=== PATIENT | male | born 1960 | race Caucasian/White ===

== ENCOUNTER 2021-09-11 08:52 | Emergency (ER) | payer BC ==
--- OUTSIDE RECORDS SUMMARY | 2021-09-11 08:55 | XMS REPORT | Continuity of Care Document ---
:1960 Author Organization [facility] t Address [address] [place] [address] Care Team Providers Name Role Phone Peng Cardoso Attending Clinician Unavailable Problems This patient has no known problems. Allergies, Adverse Reactions, Alerts This patient has no known allergies or adverse reactions. Medications This patient has no known medications. Procedures This patient has no known procedures. Encounters Start End Encounter Admission Attending Care Care Encounter Source Date/Time Date/Time Type Type Clinicians Facility Department ID 2021-09-02 Outpatient Cardoso, STLMLC STLC [id number] Common 13:12:02 Raoul [id number] [facility] 2021-08-08 Outpatient Cardoso, STLMLC STLC [id number] Common 10:09:04 Raoul [facility] 2021-05-15 Outpatient Cardoso, STLMLC STLMLC [id number] Common 13:14:29 Raoul [id number] [facility] 2021-09-03 2021-09-03 ambulatory STLMLC STLMLC [id number] Common 00:00:00 00:00:00 [facility] 2020-10-17 2020-10-17 Outpatient STLMLC STLMLC [id number] Common 00:00:00 00:00:00 [facility] 2020-10-01 2020-10-01 Outpatient STLMLC STLMLC [id number] Common 00:00:00 00:00:00 [facility] Results This patient has no known results.
[2021-09-11] MEDS ORDERED: NA CHLORIDE 0.9% 1,000 ML ONE (09:42)
[2021-09-11 09:48] LABS: Hematocrit 45.3 % (39.6-49.0); Lymphocytes % 18.8 % (15.3-44.8); MPV 6.6 fL (7.6-11.3); RBC Red Blood Cell Count 5.08 M/uL (4.33-5.43)
[2021-09-11 10:06] LABS: Albumin 3.8 g/dL (3.4-5.0); Bilirubin Total 0.8 mg/dL (0.2-1.0); Protein, Total 7.6 g/dL (6.4-8.2)
--- NOTE | 2021-09-11 10:44 | EDPHYS ---
Physician Documentation [facility] Name: Dean Darden Age: 61 yrs Sex: Male : 1960 Arrival Date: 09/11/2021 Time: 08:55 Bed Waiting Private MD: Raoul Cardoso ED Physician Dilan Sutton HPI: 09/11 09:08 This 61 yrs old Male presents to ER via Unassigned with complaints of Abdominal jmm Cramping, Diarrhea. 09:08 The patient presents to the emergency department with nausea, vomiting, diarrhea. jmm Onset: The symptoms/episode began/occurred gradually, 2 day(s) ago. Possible causes: unknown. The symptoms are aggravated by nothing. The symptoms are alleviated by nothing. Associated signs and symptoms: Pertinent positives: diarrhea, fever, nausea, vomiting. The patient has not experienced similar symptoms in the past. This is a 61 year old male with no chronic medical conditions that presents to the ED with complaints of nausea, low grade fever, diarrhea beginning this past Thursday. Denies abdominal pain but states he has a bowel movement every 15 to 30 minutes. Denies recent travel, abx use, infectious exposure. . ROS: 09:08 Cardiovascular: Negative for chest pain, palpitations, and edema, Respiratory: Negative jmm for shortness of breath, cough, wheezing, and pleuritic chest pain. 09:08 Constitutional: Positive for body aches, chills, fatigue, fever, malaise. 09:08 Abdomen/GI: Positive for nausea, vomiting, diarrhea. 09:08 All other systems are negative. Exam: 09:08 Constitutional: This is a well developed, well nourished patient who is awake, alert, jmm and in no acute distress. Head/Face: atraumatic. Eyes: EOMI, no conjunctival erythema appreciated ENT: Moist Mucus Membranes Neck: Trachea midline, Supple Chest/axilla: Normal chest wall appearance and motion. Cardiovascular: Regular rate and rhythm. No edema appreciated Respiratory: Normal respirations, no respiratory distress appreciated Abdomen/GI: Non distended, soft Back: Normal ROM Skin: General appearance color normal MS/ Extremity: Moves all extremities, no obvious deformities appreciated, no edema noted to the lower extremities Neuro: Awake and alert Psych: Behavior is normal, Mood is normal, Patient is cooperative and pleasant 09:08 Abdomen/GI: Inspection: abdomen appears normal, Bowel sounds: normal, Palpation: abdomen is soft and non-tender, in all quadrants. Vital Signs: 09:40 BP 132 / 82; Pulse 96; Resp 16; Temp 98.5; Pulse Ox 98% on R/A; iw MDM: 09:08 Patient medically screened. [facility] 10:43 Data reviewed: vital signs, nurses notes. Counseling: I had a detailed discussion with [facility] the patient and/or guardian regarding: the historical points, exam findings, and any diagnostic results supporting the discharge/admit diagnosis, lab results, the need for outpatient follow up, to return to the emergency department if symptoms worsen or persist or if there are any questions or concerns that arise at home. 09/11 09:08 Order name: CBC with Diff; Complete Time: 09:50 [facility] 09/11 09:08 Order name: CMP; Complete Time: 10:08 [facility] 09/11 09:08 Order name: Lipase; Complete Time: 10:08 [facility] 09/11 09:08 Order name: IV Saline Lock; Complete Time: 09:42 [facility] 09/11 09:08 Order name: Labs collected and sent; Complete Time: 09:42 [facility] Administered Medications: 09:42 Drug: NS 0.9% 1000 ml Route: IV; Rate: 1 bolus; Site: left antecubital; iw 10:45 Follow up: IV Status: Completed infusion iw 09:42 Not Given (Patient Refused): Zofran (Ondansetron) 4 mg IVP once; over 2 minutes iw Disposition: 12:43 Co-signature as Attending Physician, Dilan Sutton MD. Chart complete. Chart complete. rn Disposition Summary: 09/11/21 10:43 Discharge Ordered Location: Home [facility] Condition: Stable [facility] Diagnosis - Diarrhea, unspecified [facility] - Dehydration [facility] Followup: [facility] - With: Raoul Cardoso, DO - When: 1 - 2 days - Reason: Recheck today's complaints, Continuance of care, Re-evaluation by your physician Discharge Instructions: - Discharge Summary Sheet [facility] - Food Choices to Help Relieve Diarrhea, Adult jmm - Dehydration, Adult jmm - Probiotics [facility] Forms: - Medication Reconciliation Form [facility] - Thank You Letter [facility] - Antibiotic Education [facility] - Prescription Opioid Use [facility] Prescriptions: - ondansetron 4 mg Oral tablet,disintegrating - take 1 tablet by ORAL route every 4-6 hours As needed; 30 tablet; Refills: 0, [facility] Product Selection Permitted - dicyclomine 20 mg Oral Tablet - take 1 tablet by ORAL route 4 times per day; 30 tablet; Refills: 0, Product [facility] Selection Permitted Signatures: Dispatcher [employer] Dante Lindo PA PA jmm Williams, Irene, RN RN iw Dilan Sutton MD MD rn
--- NOTE | 2021-09-11 10:44 | ER ---
Nurse's Notes [facility] Name: Dean Darden Age: 61 yrs Sex: Male : 1960 Arrival Date: 09/11/2021 Time: 08:55 Bed Waiting Private MD: Raoul Cardoso Diagnosis: Diarrhea, unspecified;Dehydration Presentation: 09/11 09:35 Acuity: BUD 3 iw 09:40 Chief complaint: Patient states: diarrhea abd cramping all last night. Coronavirus iw screen: Client presents with at least one sign or symptom that may indicate coronavirus-19. Ebola Screen: Patient negative for fever greater than or equal to 101.5 degrees Fahrenheit, and additional compatible Ebola Virus Disease symptoms Patient denies exposure to infectious person. Patient denies travel to an Ebola-affected area in the 21 days before illness onset. No symptoms or risks identified at this time. Initial Sepsis Screen: Does the patient meet any 2 criteria? No. Patient's initial sepsis screen is negative. Does the patient have a suspected source of infection? No. Patient's initial sepsis screen is negative. Risk Assessment: Do you want to hurt yourself or someone else? Patient reports no desire to harm self or others. Onset of symptoms was September 10, 2021. 09:40 Method Of Arrival: Ambulatory iw Screenin:42 Abuse screen: Denies threats or abuse. Denies injuries from another. Nutritional iw screening: No deficits noted. Tuberculosis screening: No symptoms or risk factors identified. Fall Risk IV access (20 points). Assessment: 09:42 General: Appears in no apparent distress. Behavior is calm, cooperative. Pain:. Neuro: iw Level of Consciousness is awake, alert, obeys commands. GI: Reports diarrhea. Derm: Skin is intact, is healthy with good turgor. Vital Signs: 09:40 BP 132 / 82; Pulse 96; Resp 16; Temp 98.5; Pulse Ox 98% on R/A; iw ED Course: 08:55 Patient arrived in ED. mr 08:55 Raoul Cardoso DO is Private Physician. mr 09:04 Dante Castellanos PA is PHCP. [facility] 09:04 Dilan Sutton MD is Attending Physician. [facility] 09:35 Jill Mcgovern, JAMES is Primary Nurse. iw 09:35 Triage completed. iw 09:41 Arm band placed on. iw 09:42 Inserted saline lock: 20 gauge in left antecubital area, using aseptic technique. iw 10:43 Raoul Cardoso DO is Referral Physician. shayne Administered Medications: 09:42 Drug: NS 0.9% 1000 ml Route: IV; Rate: 1 bolus; Site: left antecubital; iw 10:45 Follow up: IV Status: Completed infusion iw 09:42 Not Given (Patient Refused): Zofran (Ondansetron) 4 mg IVP once; over 2 minutes iw Outcome: 10:43 Discharge ordered by . shayne 10:57 Patient left the ED. iw Signatures: Dante Castellanos PA PA jmm Rivera, Mary mr Jill Mcgovern, RN RN iw
[2021-09-11 11:02] VITALS: BP 132/82; TEMP 98.5; O2SAT 98
== END 2021-09-11 10:57 | disposition home or self-care (01) ==
LOC: ER 08:52
DX: R19.7 Diarrhea, unspecified (principal); E86.0 Dehydration; R11.2 Nausea with vomiting, unspecified
CPT/HCPCS: 85025; 36415; 83690; 80053; 96360; 99283; J7030

== ENCOUNTER 2024-05-04 20:53 | Emergency (ER) | payer BC ==
--- NOTE | 2024-05-04 22:18 | RAD REPORT ---
EXAMINATION: CT HEAD WITHOUT CONTRAST CLINICAL INDICATION: Male, 64 years old.HEADACHE TECHNIQUE: Axial CT images from the skull base to the vertex without intravenous contrast. Coronal an d sagittal reformatted images were created from the data set. One or more of the following dose reduction techniques were used: Automated exposure control, adjustment of the mA and/or kV according to patient size, and/or iterative reconstruction. Unless otherwise specified, incidental findings do not require dedicated imaging follow-up. [id number]. COMPARISON: No prior exam. FINDINGS: INTRACRANIAL: No acute intracranial hemorrhage. No hydrocephalus. No mass effect or midline shift. No significant white matter disease VASCULATURE: No visualized abnormalities in the arteries or dural venous sinuses. SCALP/SKULL: No significant soft tissue or osseous abnormalities. SINUSES: The visualized paranasal sinuses and mastoid air cells are predominantly clear. IMPRESSION: No acute intracranial abnormality.
--- NOTE | 2024-05-04 22:21 | RAD REPORT ---
EXAM: Chest Single View HISTORY: COUGH COMPARISON: None. FINDINGS: LUNGS/PLEURA: The lungs are clear. No pleural effusions or pneumothorax. No pulmonary edema. MEDIASTINUM: The mediastinal silhouette is within normal limits. CARDIAC: The cardiac silhouette is within normal limits. UPPER ABDOMEN: No significant abnormality. BONES: No acute abnormality. LINES/TUBES/OTHER: N/A IMPRESSION: No evidence of acute cardiopulmonary disease.
[2024-05-04] MEDS ORDERED: cloNIDine HCL 0.1 MG TAB ONE (23:25)
[2024-05-04] MEDS ORDERED: lisinopriL 20 MG TAB ONE (23:25)
[2024-05-05 00:06] LABS: PT Prothrombin Time 11.2 SECONDS (9.4-12.5); Protime INR 1.07
[2024-05-05 00:08] LABS: Absolute Basophils 0.1 K/uL (0-0.5); Absolute Eosinophils 0.2 K/uL (0-0.5); Absolute Lymphocytes (CBC) 1.9 K/uL (0.7-4.9); Absolute Monocytes 0.4 K/uL (0.1-1.3); Absolute Neutrophil 3.2 K/uL (1.8-8.0); Basophils % 1.1 % (0-1.3); Eosinophils % 2.7 % (0-4.4); Hematocrit 42.9 % (39.6-49.0); Hemoglobin 15.1 g/dL (13.6-17.9); Lymphocytes % 33.2 % (15.3-44.8); MCH 31.6 pg (27.0-35.0); MCHC 35.1 g/dL (32.0-36.0); MCV 90.2 fL (80-100); MPV 7.7 fL (7.6-11.3); Monocytes % 7.5 % (3.3-12.3); Neutrophils % 55.5 % (41.7-73.7); Nucleated Red Blood Cells % 0.1 % (0-0); Platelets 252 thou/uL (152-406); RBC Red Blood Cell Count 4.76 M/uL (4.33-5.43); Red Cell Distribution Width 13.1 % (12.1-15.2)
[2024-05-05 00:20] LABS: ALT/SGPT 31 U/L (16-61); AST/SGOT 22 U/L (15-37); Albumin 3.8 g/dL (3.4-5.0); Albumin/Globulin Ratio 1.2 (1.1-1.8); Alkaline Phosphatase 53 U/L (45-117); Anion Gap 5.7 mEq/L (5.0-15.0); BUN Blood Urea Nitrogen 19 mg/dL (7-18); Bicarbonate 27 mEq/L (21-32); Bilirubin Total 0.4 mg/dL (0.2-1.0); Globulin 3.2 g/dL (2.3-3.5); Glomerular Filtration Rate 67 ml/min (=/>90); Glucose Level 120 mg/dL (74-106); Magnesium 2.2 mg/dL (1.6-2.4); NT PRO-BNP 125 pg/mL (<125); Potassium 3.7 mEq/L (3.5-5.1); Sodium Level 139 mEq/L (136-145); Troponin High Sensitivity 7.9 pg/mL (<58.9)
[2024-05-05 00:39] LABS: Bilirubin Direct < 0.2 mg/dL (0-0.2); Bilirubin Indirect, Calculated 0.2 mg/dL (0.2-0.8)
--- NOTE | 2024-05-05 00:51 | ER ---
Nurse's Notes [facility] Name: Dean Darden Age: 64 yrs Sex: Male : 1960 Arrival Date: 05/04/2024 Time: 20:53 Bed 15 Private MD: Diagnosis: Hypertensive heart disease without heart failure Presentation: 05/04 21:23 Chief complaint: Patient states: been keeping a log of bp, tonight it was high with c/o vc1 headache at base of skull, pressure behind eyes, lightheaded. Coronavirus screen: Client denies travel out of the [place] in the last 14 days. Ebola Screen: Patient negative for fever greater than or equal to 101.5 degrees Fahrenheit, and additional compatible Ebola Virus Disease symptoms Patient denies exposure to infectious person. Patient denies travel to an Ebola-affected area in the 21 days before illness onset. No symptoms or risks identified at this time. Initial Sepsis Screen: Does the patient meet any 2 criteria? No. Patient's initial sepsis screen is negative. Does the patient have a suspected source of infection? No. Patient's initial sepsis screen is negative. Risk Assessment: Do you want to hurt yourself or someone else? Patient reports no desire to harm self or others. Onset of symptoms was May 04, 2024. Care prior to arrival: None. Activity prior to arrival: None. Mechanism of Injury: No Mechanism of Injury. Transition of care: patient was not received from another setting of care. 21:23 Method Of Arrival: Ambulatory vc1 21:23 Acuity: BUD 3 vc1 Triage Assessment: 21:25 Headache History: Denies prior headaches. General: Behavior is anxious. General: vc1 Appears in no apparent distress. uncomfortable, slender, well groomed, well developed, well nourished, Behavior is cooperative. Pain: Complains of pain in occipital area Pain does not radiate. Pain currently is 3 out of 10 on a pain scale. Pain began 2-3 days ago. Also complains of dizziness. EENT: No deficits noted. No signs and/or symptoms were reported regarding the EENT system. Neuro: Level of Consciousness is awake, alert, obeys commands, Oriented to person, place, time, situation, Appropriate for age Reports headache occipital area. Cardiovascular: Denies chest pain, Capillary refill < 3 seconds Patient's skin is warm and dry. Respiratory: Airway is patent Respiratory effort is even, unlabored, Respiratory pattern is regular, symmetrical. GI: No deficits noted. No signs and/or symptoms were reported involving the gastrointestinal system. : No deficits noted. No signs and/or symptoms were reported regarding the genitourinary system. Derm: Skin is intact, is healthy with good turgor, Skin is dry, Skin is normal, Skin temperature is warm. Musculoskeletal: Circulation, motion, and sensation intact. Range of motion: intact in all extremities. Historical: - Allergies: 21:25 PENICILLINS; vc1 - Home Meds: 21:25 aspirin 81 mg Oral capsule [Active]; vc1 - PMHx: 21:25 None; vc1 - PSHx: 21:25 None; vc1 - Immunization history:: Client reports receiving the 2nd dose of the Covid vaccine, Flu vaccine is up to date. - Infectious Disease History:: Denies. - Social history:: Smoking status: Patient/guardian denies using tobacco, but has a distant history of tobacco abuse. Screenin:29 [facility] ED Fall Risk Assessment (Adult) History of falling in the last 3 months, vc1 including since admission No falls in past 3 months (0 pts) Confusion or Disorientation No (0 pts) Intoxicated or Sedated No (0 pts) Impaired Gait No (0 pts) Mobility Assist Device Used No (0 pt) Altered Elimination No (0 pt) Score/Fall Risk Level 0 - 2 = Low Risk Oriented to surroundings, Maintained a safe environment, Educated pt \T\ family on fall prevention, incl call for assistance when getting out of bed. Abuse screen: Denies threats or abuse. Nutritional screening: No deficits noted. Tuberculosis screening: No symptoms or risk factors identified. Assessment: 23:05 General: Appears in no apparent distress. comfortable, Behavior is calm, cooperative, jb4 appropriate for age. Pain: Complains of pain in epigastric area Pain does not radiate. Pain currently is 5 out of 10 on a pain scale. Neuro: Level of Consciousness is awake, alert, obeys commands, Oriented to person, place, time, situation. Cardiovascular: Patient's skin is warm and dry. Respiratory: Airway is patent Respiratory effort is even, unlabored, Respiratory pattern is regular, symmetrical. Derm: Skin is intact, Skin is pink, warm \T\ dry. 23:36 Reassessment: No changes from previously documented assessment. Patient and/or family vc1 updated on plan of care and expected duration. Pain level reassessed. Patient is alert, oriented x 3, equal unlabored respirations, skin warm/dry/pink. 05/05 01:00 Reassessment: Patient appears in no apparent distress at this time. Patient and/or jb4 family updated on plan of care and expected duration. Pain level reassessed. Patient is alert, oriented x 3, equal unlabored respirations, skin warm/dry/pink. Vital Signs: 05/04 21:23 BP 195 / 99; Pulse 78; Resp 15; Temp 99; Pulse Ox 98% ; vc1 23:28 BP 179 / 93; Pulse 65; Resp 22; Pulse Ox 98% ; Weight 79.83 kg; Height 6 ft. 1 in. ; vc1 23:45 BP 168 / 83; Pulse 60; Resp 16; Pulse Ox 98% on R/A; jb4 05/05 01:01 BP 156 / 78; Pulse 65; Resp 16; Pulse Ox 100% on R/A; jb4 05/04 23:28 Body Mass Index 23.22 (79.83 kg, 185.42 cm) vc1 ED Course: 05/04 20:56 Patient arrived in ED. jj6 20:59 Joss Marti PA is PHCP. cp 20:59 Bhavin Rasheed MD is Attending Physician. cp 21:24 Triage completed. vc1 21:28 Arm band placed on left wrist. vc1 22:05 CT Head Brain wo Cont In Process Unspecified. EDMS 22:16 Chest Single View In Process Unspecified. EDMS 23:06 Lucas Rice, JAMES is Primary Nurse. jb4 23:33 Patient has correct armband on for positive identification. Bed in low position. Call vc1 light in reach. Provided Education on: call light. school bus monitor on. Pulse ox on. NIBP on. 05/05 01:01 No provider procedures requiring assistance completed. IV discontinued, intact, jb4 bleeding controlled, No redness/swelling at site. Pressure dressing applied. Administered Medications: 05/04 21:29 CANCELLED (Physician Discretion): clonidine0.2 mg PO once cp 23:35 Drug: Lisinopril PO 20 mg PO once Route: PO; jb4 05/05 01:02 Follow up: Response: No adverse reaction; Marked relief of symptoms; Blood pressure is jb4 lowered 05/04 23:35 Drug: cloNIDine PO 0.1 mg PO once Route: PO; jb4 05/05 01:02 Follow up: Response: No adverse reaction; Marked relief of symptoms; Blood pressure is jb4 lowered Medication: 05/04 21:29 VIS not applicable for this client. vc1 Outcome: 05/05 00:51 Discharge ordered by . chaya 01:01 Discharged to home ambulatory, jb4 : Condition: stable 01:01 Discharge instructions given to patient, Instructed on discharge instructions, follow up and referral plans. medication usage, Demonstrated understanding of instructions, follow-up care, medications, Prescriptions given X 1, 01:02 Patient left the ED. jb4 Signatures: Dispatcher [employer] EDND Joss Marti PA PA cp Bryson, James, RN RN jb4 Dorota Pichardo jj6 Adriana Celestin RN RN vc1 Corrections: (The following items were deleted from the chart) 05/04 21:28 21:25 Allergies: No Known Allergies; vc1 vc1 22:37 22:06 In radiology for Chest Single View+[email or web address]. EDND EDND 05/05 01:02 05/04 23:05 BP 156 / 78; Pulse 65bpm; Resp 16bpm; Pulse Ox 100% RA; jb4 jb4
--- NOTE | 2024-05-05 00:51 | EDPHYS ---
Physician Documentation [facility] Name: Dean Darden Age: 64 yrs Sex: Male : 1960 Arrival Date: 05/04/2024 Time: 20:53 Bed 15 Private MD: ED Physician Bhavin Rasheed HPI: 05/04 21:33 This 64 yrs old Male presents to ER via Ambulatory with complaints of High Blood cp Pressure, Headache, Epigastric Pain, HEAD PRESSURE, Dizziness. 21:33 The patient has elevated blood pressure and discovered this at home, with a home device.cp 21:33 Onset: The symptoms/episode began/occurred gradually, and became worse today. cp 21:33 Associated signs and symptoms: Pertinent positives: headache, lightheadedness, cp Pertinent negatives: chest pain, visual changes, vomiting, weakness. Severity of symptoms: in the emergency department the blood pressure is unchanged. Historical: - Allergies: 21:25 PENICILLINS; vc1 - Home Meds: 21:25 aspirin 81 mg Oral capsule [Active]; vc1 - PMHx: 21:25 None; vc1 - PSHx: 21:25 None; vc1 - Immunization history:: Client reports receiving the 2nd dose of the Covid vaccine, Flu vaccine is up to date. - Infectious Disease History:: Denies. - Social history:: Smoking status: Patient/guardian denies using tobacco, but has a distant history of tobacco abuse. ROS: 21:35 Constitutional: Negative for body aches, chills, fever, cp 21:35 Eyes: Negative for injury, pain, redness, and discharge, cp 21:35 ENT: Negative for drainage from ear(s), ear pain, sore throat, difficulty swallowing, cp difficulty handling secretions, 21:35 Cardiovascular: Negative for chest pain, edema, palpitations, 21:35 Respiratory: Negative for cough, shortness of breath, wheezing, 21:35 Abdomen/GI: Negative for abdominal pain, vomiting, diarrhea, constipation, 21:35 Neuro: Positive for headache, Negative for altered mental status, weakness, 21:35 All other systems are negative, Exam: 21:40 Constitutional: The patient appears in no acute distress, alert, awake, cp non-diaphoretic, non-toxic, well developed, well nourished, 21:40 Head/Face: Normocephalic, atraumatic. cp 21:40 Eyes: Periorbital structures: appear normal, Pupils: equal, round, and reactive to light and accomodation, Extraocular movements: intact throughout, Conjunctiva: normal, no exudate, no injection, Sclera: no appreciated abnormality, Lids and lashes: appear normal, bilaterally, 21:40 ENT: External ear(s): are unremarkable, Nose: is normal, Mouth: Lips: moist, Oral mucosa: moist, Posterior pharynx: Airway: no evidence of obstruction, patent, 21:40 Neck: ROM/movement: is normal, is supple, without pain, no range of motions limitations, 21:40 Chest/axilla: Inspection: normal, 21:40 Cardiovascular: Rate: normal, Rhythm: regular, Edema: is not appreciated, JVD: is not appreciated, 21:40 Respiratory: the patient does not display signs of respiratory distress, Respirations: normal, no use of accessory muscles, no retractions, labored breathing, is not present, Breath sounds: are clear throughout, no decreased breath sounds, no stridor, no wheezing, 21:40 Abdomen/GI: Inspection: abdomen appears normal, Palpation: abdomen is soft and non-tender, in all quadrants, 21:40 Back: pain, is absent, ROM is normal, 21:40 Neuro: Orientation: to person, place \T\ time. Mentation: is normal, Cerebellar function: is grossly normal, Motor: moves all fours, strength is normal, Sensation: is normal, 23:27 ECG was reviewed by the Attending Physician. cp Vital Signs: 21:23 BP 195 / 99; Pulse 78; Resp 15; Temp 99; Pulse Ox 98% ; vc1 23:28 BP 179 / 93; Pulse 65; Resp 22; Pulse Ox 98% ; Weight 79.83 kg; Height 6 ft. 1 in. ; vc1 23:45 BP 168 / 83; Pulse 60; Resp 16; Pulse Ox 98% on R/A; jb4 05/05 01:01 BP 156 / 78; Pulse 65; Resp 16; Pulse Ox 100% on R/A; jb4 05/04 23:28 Body Mass Index 23.22 (79.83 kg, 185.42 cm) vc1 MDM: 05/04 21:23 Medical Screening Exam initiated cp 05/05 00:50 Data reviewed: vital signs, nurses notes, lab test result(s), EKG, radiologic studies, cp CT scan, plain films, and as a result, I will discharge patient. 00:50 Differential diagnosis: hypertensive crisis, Malignant HTN, CVA, intracerebral cp hemorrhage. I considered the following discharge prescriptions or medication management in the emergency department Medications were administered in the Emergency Department. See MAR. Independent interpretation of the following test(s) in the Emergency Department EKG: See my EKG interpretation above. Counseling: I had a detailed discussion with the patient and/or guardian regarding the historical points, exam findings, and any diagnostic results supporting the discharge/admit diagnosis, lab results, radiology results, the need for outpatient follow up, a family practitioner, to return to the emergency department if symptoms worsen or persist or if there are any questions or concerns that arise at home. Response to treatment: the patient's symptoms have markedly improved after treatment, and as a result, I will discharge patient. 05/04 21:29 Order name: Basic Metabolic Panel; Complete Time: 00:45 cp 05/05 00:45 Interpretation: Normal except: CL 110; GLUC 120; BUN 19; GFR 67. cp 05/04 21:29 Order name: CBC with Diff; Complete Time: 00:38 cp 05/04 21:29 Order name: LFT's; Complete Time: 00:45 cp 05/04 21:29 Order name: Magnesium; Complete Time: 00:45 cp 05/04 21:29 Order name: NT PRO-BNP; Complete Time: 00:45 cp 05/04 21:29 Order name: PT-INR; Complete Time: 00:09 cp 05/05 00:09 Interpretation: Reviewed. 05/04 21:29 Order name: Troponin HS; Complete Time: 00:45 cp 05/04 21:29 Order name: CT Head Brain wo Cont; Complete Time: 23:27 cp 05/05 00:10 Interpretation: Report reviewed. 05/04 22: Order name: Chest Single View; Complete Time: 23:27 EDMS 05/05 00:10 Interpretation: Report reviewed. 05/04 21:29 Order name: EKG; Complete Time: 21:30 cp 05/04 20: Order name: Cardiac monitoring; Complete Time: 23:23 cp 05/04 21:29 Order name: EKG - Nurse/Tech; Complete Time: 23:23 cp 05/04 21:29 Order name: IV Saline Lock; Complete Time: 23: cp 05/04 20:29 Order name: Labs collected and sent; Complete Time: : cp 05/04 20:29 Order name: O2 Per Protocol; Complete Time: 23:23 cp 05/04 20:29 Order name: O2 Sat Monitoring; Complete Time: 23:23 cp EC/15 23:27 Rate is 60 beats/min. Rhythm is regular. IL interval is normal. QRS interval is normal. cp QT interval is normal. T waves are Inverted in lead aVR. Interpreted by me. Reviewed by me. Administered Medications: : CANCELLED (Physician Discretion): clonidine0.2 mg PO once cp 23:35 Drug: Lisinopril PO 20 mg PO once Route: PO; jb4 05/05 01:02 Follow up: Response: No adverse reaction; Marked relief of symptoms; Blood pressure is jb4 lowered 05/04 23:35 Drug: cloNIDine PO 0.1 mg PO once Route: PO; jb4 05/05 01:02 Follow up: Response: No adverse reaction; Marked relief of symptoms; Blood pressure is jb4 lowered Disposition: 20:26 Co-signature as Attending Physician, Bhavin Rasheed MD I agree with the assessment sp4 and plan of care. I reviewed the patient's care provided by the Advanced Practice Provider and agree with the diagnosis and treatment plan. Disposition Summary: 05/05/24 00:51 Discharge Ordered Notes: Location: Home cp Problem: new cp Symptoms: have improved cp Condition: Stable cp Diagnosis - Hypertensive heart disease without heart failure cp Followup: cp - With: Private Physician - When: 2 - 3 days - Reason: Recheck today's complaints Discharge Instructions: - Discharge Summary Sheet cp - Hypertension, Adult cp - Aspirin and Your Heart cp - Form - Blood Pressure Record Sheet cp - How to Take Your Blood Pressure cp Forms: - Medication Reconciliation Form cp - Antibiotic Education cp - Prescription Opioid Use cp - Patient Portal Instructions cp - Leadership Thank You Letter cp Prescriptions: - Lisinopril 20 mg Oral Tablet - take 1 tablet ORAL route once daily; 20 tablet; Refills: 0, Product Selection cp Permitted Signatures: Dispatcher [employer] [facility] Joss Marti PA PA cp Bryson, James, RN RN jb4 Adriana Celestin, RN RN vc1 Bhavin Rasheed MD MD sp4 Corrections: (The following items were deleted from the chart) 05/04 21: 21:25 Allergies: No Known Allergies; vc1 vc1 21:29 cloNIDine PO 0.2 mg PO once ordered. cp cp : 21:30 Head Brain Wo Cont+CT.RAD.BRZ ordered. EDMS EDMS 22:37 21:30 Chest Single View+RAD.RAD.BRZ ordered. EDMS EDMS 05/06 00:29 05/04 21:35 Cardiovascular: Positive for chest pain, cp cp
--- NOTE | 2024-05-05 11:43 | EKG ---
Test Date: 2024-05-04 Test Time: 23:19:36 Director Executive Communications: ABEBE MEASUREMENT RESULTS: Intervals: Rate: 60 NH: 136 QRSD: 74 QT: 408 QTc: 408 [place]: P: 58 NH: 136 QRS: 23 T: 49 INTERPRETIVE STATEMENTS: Normal sinus rhythm Normal ECG No previous ECG available for comparison Electronically Signed On 05-05-24 11:42:37 SEVERITY OF ILLNESS COORDINATOR by Aron Romeo
[2024-05-06 02:36] VITALS: BP 156/78; TEMP 99; O2SAT 100
== END 2024-05-05 01:02 | disposition home or self-care (01) ==
LOC: ER 20:53
DX: I11.9 Hypertensive heart disease without heart failure (principal)
CPT/HCPCS: 36415; 70450; 71045; 80048; 80076; 83735; 83880; 84484; 85025; 85610; 93005; 99284

== ENCOUNTER 2024-07-13 15:35 | Emergency (ER) | payer BC ==
[2024-07-13 16:26] LABS: Absolute Eosinophils 0.1 K/uL (0-0.5); Absolute Lymphocytes (CBC) 1.6 K/uL (0.7-4.9); Absolute Monocytes 0.4 K/uL (0.1-1.3); Absolute Neutrophil 3.4 K/uL (1.8-8.0); Basophils % 0.9 % (0-1.3); Eosinophils % 1.3 % (0-4.4); Hematocrit 45.5 % (39.6-49.0); Hemoglobin 15.7 g/dL (13.6-17.9); Lymphocytes % 29.7 % (15.3-44.8); MCH 31.5 pg (27.0-35.0); MCHC 34.6 g/dL (32.0-36.0); MCV 91.1 fL (80-100); MPV 7.7 fL (7.6-11.3); Monocytes % 7.5 % (3.3-12.3); Neutrophils % 60.6 % (41.7-73.7); Nucleated Red Blood Cells % 0.1 % (0-0); Platelets 244 thou/uL (152-406); RBC Red Blood Cell Count 4.99 M/uL (4.33-5.43); Red Cell Distribution Width 13.8 % (12.1-15.2)
[2024-07-13 16:43] LABS: Albumin 3.9 g/dL (3.4-5.0); Albumin/Globulin Ratio 1.2 (1.1-1.8); Anion Gap 9.1 mEq/L (5.0-15.0); Bilirubin Total 0.6 mg/dL (0.2-1.0); Globulin 3.2 g/dL (2.3-3.5); Potassium 4.1 mEq/L (3.5-5.1); Protein, Total 7.1 g/dL (6.4-8.2)
[2024-07-13 17:10] LABS: Specific Gravity 1.024 (1.005-1.030); Urine Bilirubin NEGATIVE (Negative); Urine Blood Negative (Negative); Urine Clarity Clear (Clear); Urine Color Light-Yellow (Yellow); Urine Glucose NEGATIVE (Negative); Urine Ketones NEGATIVE (Negative); Urine Microscopic Reflex YN NO UMIC; Urine Nitrite NEGATIVE (Negative); Urine Protein NEGATIVE (Negative); Urine Urobilinogen Normal (Normal); Urine pH 5.5 (5.0-7.0)
--- NOTE | 2024-07-13 17:16 | RAD REPORT ---
EXAMINATION: CT ABDOMEN AND PELVIS WITHOUT CONTRAST CLINICAL INDICATION: Abdominal pain. Flank pain TECHNIQUE: CT abdomen and pelvis was performed, as per department protocol. IV contrast and oral was not administered.Axial, sagittal and coronal reconstructions were obtained. One or more of the following dose reduction techniques were used: Automated exposure control, adjustment of the mA and/o r kV according to the patient size, and/or iterative reconstruction. Unless otherwise specified, incidental findings do not require dedicated imaging follow-up. [id number]. COMPARISON: No prior exam. FINDINGS: The lack of intravenous and oral contrast limits evaluation of solid organs, vessels and bowel. The liver, spleen, pancreas, adrenals and kidneys appear grossly normal No evidence of diverticulitis Normal appendix. IMPRESSION: No acute abnormality displayed
--- NOTE | 2024-07-13 17:32 | ER ---
Nurse's Notes [facility] Name: Dean Darden Age: 64 yrs Sex: Male : 1960 Arrival Date: 07/13/2024 Time: 15:35 Bed 19 Private MD: Diagnosis: Low back pain Presentation: 07/13 15:55 Chief complaint: Patient states: was referred to a marketing liaison in May due to iw abnormal kidney function, has been having a dull ache and pressure in the middle of his back. Coronavirus screen: At this time, the client does not indicate any symptoms associated with coronavirus-19. Ebola Screen: No symptoms or risks identified at this time. Initial Sepsis Screen: Does the patient meet any 2 criteria? No. Patient's initial sepsis screen is negative. Does the patient have a suspected source of infection? No. Patient's initial sepsis screen is negative. Risk Assessment: Do you want to hurt yourself or someone else? Patient reports no desire to harm self or others. 15:55 Method Of Arrival: Ambulatory iw 15:55 Acuity: BUD 3 iw Historical: - Allergies: 15:56 PENICILLINS; iw - Home Meds: 15:57 lisinopril 20 mg Oral tablet daily [Active]; iw - PMHx: 15:57 Hypertensive disorder; iw - PSHx: 15:57 None; iw - Immunization history:: Adult Immunizations up to date. - Infectious Disease History:: Denies. - Social history:: Smoking status: Patient denies any tobacco usage or history of. Screenin:07 [facility] ED Fall Risk Assessment (Adult) History of falling in the last 3 months, ld1 including since admission No falls in past 3 months (0 pts) Confusion or Disorientation No (0 pts) Intoxicated or Sedated No (0 pts) Impaired Gait No (0 pts) Mobility Assist Device Used No (0 pt) Altered Elimination No (0 pt) Score/Fall Risk Level 0 - 2 = Low Risk Oriented to surroundings, Hourly rounding (assess needs \T\ fall precautionary measures) done. Abuse screen: Denies threats or abuse. Denies injuries from another. Nutritional screening: No deficits noted. Tuberculosis screening: No symptoms or risk factors identified. Assessment: 16:58 Reassessment: Patient and/or family updated on plan of care and expected duration. Pain ll1 level reassessed. 17:07 General: Appears in no apparent distress. comfortable, Behavior is calm, cooperative, ld1 appropriate for age. Pain: Complains of pain in low back area Pain does not radiate. Pain currently is 8 out of 10 on a pain scale. Quality of pain is described as throbbing, Pain began suddenly, Is continuous. Neuro: Level of Consciousness is awake, alert, obeys commands, Oriented to person, place, time, situation. Cardiovascular: Capillary refill < 3 seconds Patient's skin is warm and dry. Respiratory: Airway is patent Respiratory effort is even, unlabored. GI: Abdomen is flat, non-distended. : No signs and/or symptoms were reported regarding the genitourinary system. EENT: No signs and/or symptoms were reported regarding the EENT system. Derm: No signs and/or symptoms reported regarding the dermatologic system. Musculoskeletal: No signs and/or symptoms reported regarding the musculoskeletal system. Vital Signs: 15:55 BP 147 / 87; Pulse 78; Resp 16; Temp 98.2; Pulse Ox 98% on R/A; Weight 78.02 kg; Height iw 6 ft. 1 in. ; 17:07 BP 144 / 62; Pulse 65; Resp 18; Pulse Ox 99% on R/A; ld1 15:55 Body Mass Index 22.69 (78.02 kg, 185.42 cm) iw ED Course: 15:37 Patient arrived in ED. im 15:56 Triage completed. iw 15:57 Arm band placed on. iw 16:02 Jamal Wilkes MD is Attending Physician. ec2 16:16 Inserted saline lock: 20 gauge in left antecubital area, using aseptic technique. Blood iw collected. Flushed with 10 mL NS. 16:55 CT Abd/Pelvis - Without Contrast In Process Unspecified. EDMS 16:57 Patient placed in an exam room, on a stretcher. ll1 17:01 Mary Thornton, JAMES is Primary Nurse. ld1 17:07 Patient has correct armband on for positive identification. Placed in gown. Bed in low ld1 position. Call light in reach. Side rails up X2. Pulse ox on. NIBP on. Door closed. Noise minimized. Warm blanket given. 17:07 Urinalysis w/ reflexes Sent. ld1 17:07 No provider procedures requiring assistance completed. ld1 17:53 IV discontinued, intact, bleeding controlled, No redness/swelling at site. ld1 Administered Medications: No medications were administered Medication: 17:07 VIS not applicable for this client. ld1 Outcome: 17:32 Discharge ordered by . ec2 17:53 Discharged to home ambulatory, ld1 17:53 Condition: stable 17:53 Discharge instructions given to patient, Instructed on discharge instructions, follow up and referral plans. medication usage, Demonstrated understanding of instructions, follow-up care, medications, Prescriptions given X 1, 17:53 Patient left the ED. ld1 Signatures: Dispatcher [employer] Jill Sauer RN RN iw Brandan Medina RN RN ll1 Mary Thornton RN RN ld1 Magnolia Hutchins Edwin, MD MD ec2 Corrections: (The following items were deleted from the chart) 15:57 15:55 BP 147 / 87; Pulse 78bpm; Resp 16bpm; Pulse Ox 98% RA; iw iw 15:59 15:55 BP 147 / 87; Pulse 78bpm; Resp 16bpm; Pulse Ox 98% RA; 78.02 kg; Height 6 ft. 1 iw in.; BMI: 22.6; iw
--- NOTE | 2024-07-13 17:32 | EDPHYS ---
Physician Documentation [facility] Name: Dean Darden Age: 64 yrs Sex: Male : 1960 Arrival Date: 07/13/2024 Time: 15:35 Bed 19 Private MD: ED Physician Jamal Wilkes HPI: 07/13 17:16 This 64 yrs old Male presents to ER via Ambulatory with complaints of Low ec2 Back Pain. 17:16 Patient arrives today for evaluation of bilateral flank pain. Patient reports he has ec2 been having some bilateral flank pain and was told to come to the ED for evaluation that his primary care doctor is out of town. Patient reports no fevers or chills, no nausea or vomiting. Patient reports no specific urinary complaints, no hematuria. Reports he has some CKD as well.. Historical: - Allergies: 15:56 PENICILLINS; iw - Home Meds: 15:57 lisinopril 20 mg Oral tablet daily [Active]; iw - PMHx: 15:57 Hypertensive disorder; iw - PSHx: 15:57 None; iw - Immunization history:: Adult Immunizations up to date. - Infectious Disease History:: Denies. - Social history:: Smoking status: Patient denies any tobacco usage or history of. ROS: 17:17 Constitutional: as per hpi ec2 Exam: 17:17 Constitutional: GEN: NAD Head: atraumatic Eyes: EOMI Ears: External ears are ec2 normal. CV: regular rate LUNGS: no respiratory distress ABD: non-distended SKIN: no evidence of rashes MSK: no evidence of trauma Vital Signs: 15:55 BP 147 / 87; Pulse 78; Resp 16; Temp 98.2; Pulse Ox 98% on R/A; Weight 78.02 kg; Height iw 6 ft. 1 in. ; 17:07 BP 144 / 62; Pulse 65; Resp 18; Pulse Ox 99% on R/A; ld1 15:55 Body Mass Index 22.69 (78.02 kg, 185.42 cm) iw MDM: 16:03 Medical Screening Exam initiated ec2 17:17 Data reviewed: vital signs, nurses notes. ED course: Patient arrives today for ec2 evaluation of bilateral flank pain. Examination yields well-appearing nontoxic and reliable for stable individuals otherwise in no acute distress. Lab work shows some CKD, urine is noninfectious. Pending CT imaging.. 17:32 ED course: CT abdomen pelvis shows no acute intra-abdominal process. 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 Return precautions given.. 07/13 16:03 Order name: CBC with Diff; Complete Time: 16:28 ec2 07/13 16:03 Order name: CMP; Complete Time: 17:06 ec2 07/13 16:03 Order name: Lipase; Complete Time: 17:06 ec2 07/13 16:03 Order name: Urinalysis w/ reflexes; Complete Time: 17:16 ec2 07/13 16:16 Order name: CT Abd/Pelvis - Without Contrast; Complete Time: 17:32 ec2 07/13 16:03 Order name: IV Saline Lock; Complete Time: 16:25 ec2 07/13 16:03 Order name: Labs collected and sent; Complete Time: 16:25 ec2 Administered Medications: No medications were administered Disposition Summary: 07/13/24 17:32 Discharge Ordered Notes: Location: Home ec2 Condition: Stable ec2 Diagnosis - Low back pain ec2 Followup: ec2 - With: Private Physician - When: - Reason: Re-evaluation by your physician Discharge Instructions: - Discharge Summary Sheet ec2 - Acute Back Pain, Adult ec2 Forms: - Medication Reconciliation Form ec2 - Antibiotic Education ec2 - Prescription Opioid Use ec2 - Patient Portal Instructions ec2 - Leadership Thank You Letter ec2 Prescriptions: - methocarbamol 500 mg Oral tablet - take 1 tablet ORAL route 4 times per day; 20 tablet; Refills: 0, Product ec2 Selection Permitted Signatures: Dispatcher [employer] Jill Sauer RN RN iw Corral, Edwin, MD MD ec2
[2024-07-13 19:18] VITALS: TEMP 98.2
[2024-07-13 19:20] VITALS: BP 144/62; O2SAT 99
== END 2024-07-13 17:53 | disposition home or self-care (01) ==
LOC: ER 15:35
DX: M54.50 Low back pain, unspecified (principal); I12.9 Hypertensive chronic kidney disease with stage 1 through stage 4 chronic kidney disease, or unspecified chronic kidney disease; N18.9 Chronic kidney disease, unspecified
CPT/HCPCS: 36415; 74176; 80053; 81003; 83690; 85025